=== PATIENT | female | born 1965 | race Caucasian/White ===

== ENCOUNTER 2017-03-18 15:19 | Inpatient (IN) | payer OTHER ==
[~2017-03-18] VITALS: Ht 157.5 cm; Wt 62.4 kg
[~2017-03-18 15:19] MED LIST: AMBIEN10 M1 PO; AMBIEN5 MG PO; AMLODIPINE BESY10 MG PO; ANAPROX DS550 M1 PO; APRESOLINE50 MG PO; ASPIR 8181 M1 PO; ASPIR-TRIN325 M1; ATARAX,VISTARIL50 MG PO; BUSPAR5 MG PO; BUSPAR7.5 MG PO; BUSPIRONE HCL7.5 MG PO; CALCITRIOL0.25 MCG PO; COZAAR100 MG PO; CYMBALTA30 MG PO; DIOVAN320 MG; DIVALPROEX SOD500 M1; ELAVIL25 MG PO; ERGOCALCIF50000 UNIT PO; FLEXERIL10 MG PO; GABAPENTIN100 MG PO; GLIPIZIDE ER2.5 MG; HYDROXYZINE HCL50 MG PO; HYZAAR 100-11 TABLET PO; IMDUR30 MG PO; IMITREX100 MG PO; LANTUS 3 M100 UNITS1 SC; LEVOTHYROXINE100 MCG; LEXAPRO10 MG PO; LIPITOR20 MG PO; LOPRESSOR100 M1 PO; LORTAB 5-325 M1 EACH PO; LOSARTAN POTASS50 MG PO; LYRICA100 MG PO; LYRICA50 MG; METOPROLOL TART50 MG PO; MONTELUKAST SOD10 MG PO; NITROSTAT0.4 MG SL; NORVASC10 MG PO; NOVOLOG 10100 UNITS/ SC; NOVOLOG PE100 UNITS/ SC; OMEGA-31000 M1; OMEPRAZOLE20 M3; OMEPRAZOLE20 MG PO; OMEPRAZOLE40 M1 PO; OXAYDO5 MG PO; OXYCODONE HCL10 MG PO; OXYCODONE HCL15 MG PO; PLAVIX75 MG PO; PRILOSEC20 MG PO; ROCALTROL0.25 MCG PO; ROXICODONE15 MG PO; SIMVASTATIN40 M1 PO; SINGULAIR10 MG PO; TOPROL XL50 MG; TRAZODONE HCL50 MG PO; TRICOR145 MG PO; TRILIPIX135 MG; TRILIPIX135 MG PO; TUMS500 MG PO; TYLENOL EXTRA500 MG PO; TYLENOL WITH C1 EACH PO; ULTRAM50 MG PO; VALTREX1000 MG PO; VICODIN,LORT1 TABLET PO; ZESTRIL,PRINIVI10 MG; ZOFRAN ODT8 MG PO; ZOLPIDEM TARTRAT5 MG PO
[2017-03-18 16:27] LABS: ADD MIUA? YES; BILIRUBIN NEGATIVE; BLOOD NEGATIVE; COLOR YELLOW ((YELLOW)); GLUCOSE (STRIP) NEGATIVE; KETONES NEGATIVE; LEUKOCYTES LARGE; NITRITE NEGATIVE; PROTEIN (STRIP) >=500; UROBILINOGEN 0.2 MG/DL (0.2-1.0)
[2017-03-18 16:32] LABS: BASOPHIL COUNT 0.1 K/uL (0-0.1); EOSINOPHIL (%) 2.9 % (0-5); EOSINOPHIL COUNT 0.2 K/uL (0-0.3); HEMATOCRIT 29.9 % (36.0-46.0); IMMATURE GRANULOCYTE (%) 0.3 % (0.0-0.7); INSTRUMENT ABS NEUTROPHIL CT 4.1 K/uL; LYMPHOCYTE COUNT 1.9 K/uL (1.0-2.8); MCH 30.2 PG (29.0-34.0); MCHC 33.4 G/DL (30.0-36.0); MCV 90.3 FL (83-99); MEAN PLAT.VOLUME 9.8 uM^3 (9.5-12.4); MONOCYTE (%) 7.5 % (3-12); MONOCYTE COUNT 0.5 K/uL (0-0.8); NEUTROPHIL (%) 59.8 % (45-76); NEUTROPHIL COUNT 4.1 K/uL (1.8-6.4); PLATELET COUNT 244 K/uL (156-360); RBC DIS.WIDTH-CV 13.2 % (11.8-14.6); RBC DIS.WIDTH-SD 43.3 % (39-53); RED BLOOD COUNT 3.31 M/uL (3.80-5.20); WHITE BLOOD COUNT 6.8 K/uL (4.1-10.2)
[2017-03-18 16:42] LABS: PROTHROMBIN TIME 9.8 (9.2-11.2); PTT 26.1 (25-32)
[2017-03-18 16:43] LABS: BACTERIA RARE /HPF; EPITHELIAL CELLS 1+ /HPF; MUCUS NONE SEEN /LPF; RED BLOOD CELLS 0-5 /HPF (0-5); UCUL ADDED? NO
[2017-03-18 16:43] LABS: CHLORIDE 105 mEq/L (99-109); POTASSIUM 4.2 mEq/L (3.7-5.4); SODIUM 136 mEq/L (136-147)
[2017-03-18 16:46] LABS: GLUCOSE 119 mg/dL (70-99)
[2017-03-18 16:47] LABS: ANION GAP 10 MEQ/L (2-14)
[2017-03-18 16:48] LABS: TOTAL BILIRUBIN 0.4 mg/dL (0.0-1.0)
[2017-03-18 16:49] LABS: ALKALINE PHOSPHATASE 55 IU/L (3-129); GFR ESTIMATE (CALCULATED) 7 mL/min/
[2017-03-18 16:50] LABS: UREA NITROGEN (BUN) 53 mg/dL (9-23)
[2017-03-18 16:53] LABS: LIPASE 28 U/L (1.0-51.0)
[2017-03-18 16:55] LABS: TROP-I INTERPRETATION NEGATIVE; TROPONIN-I 0.04 ng/mL (0.0-0.30)
[2017-03-18] MEDS ORDERED: LANTUS 3 M100 UNITS1 SC (20:27)
[2017-03-18] MEDS ORDERED: NOVOLOG PE100 UNITS/ SC (20:28)
[2017-03-18] MEDS ORDERED: HYZAAR 100-21 TABLET PO (20:29)
[2017-03-18] MEDS ORDERED: NITROSTAT0.4 MG SL (20:30)
[2017-03-18] MEDS ORDERED: LIDOCAINE700 MG TD (20:39)
[2017-03-18] MEDS ORDERED: NORVASC10 MG PO (20:41)
[2017-03-18 20:59] LABS: CARBON DIOXIDE (BICARBONATE) 25.8 MEQ/L (20-31)
[2017-03-18 21:09] LABS: URIC ACID 10.8 mg/dL (3.1-9.2)
[2017-03-18 21:34] VITALS: BP 130/62
[2017-03-19] VITALS (8 sets, daily range): BP systolic 101–155; BP diastolic 55–68
[2017-03-19 01:30] LABS: TROP-I INTERPRETATION NEGATIVE; TROPONIN-I 0.03 ng/mL (0.0-0.30)
[2017-03-19 06:31] LABS: HEMATOCRIT 23.7 % (36.0-46.0); MCH 30.6 PG (29.0-34.0); MCHC 33.3 G/DL (30.0-36.0); MCV 91.9 FL (83-99); RBC DIS.WIDTH-CV 13.3 % (11.8-14.6); RBC DIS.WIDTH-SD 43.8 % (39-53); WHITE BLOOD COUNT 4.9 K/uL (4.1-10.2)
[2017-03-19 06:36] LABS: TROP-I INTERPRETATION NEGATIVE; TROPONIN-I 0.03 ng/mL (0.0-0.30)
[2017-03-19 06:37] LABS: RED BLOOD COUNT 2.58 M/uL (3.80-5.20)
[2017-03-19 06:38] LABS: ALKALINE PHOSPHATASE 41 IU/L (3-129); ANION GAP 8 MEQ/L (2-14); CHLORIDE 109 MEQ/L (99-109); GFR ESTIMATE (CALCULATED) 7 mL/min/; MAGNESIUM 1.8 mg/dl (1.3-2.7); POTASSIUM 4.2 MEQ/L (3.7-5.4); SAMPLE HEMOLYSIS CHECK 0; SAMPLE ICTERIC CHECK 0; SAMPLE LIPEMIA CHECK 0; SODIUM 139 MEQ/L (136-147); TOTAL BILIRUBIN 0.3 MG/DL (0.0-1.0); UREA NITROGEN (BUN) 52 mg/dL (9-23)
[2017-03-19 06:41] LABS: GLUCOSE 89 mg/dL (70-99)
[2017-03-19 08:14] LABS: MEAN PLAT.VOLUME 10.4 uM^3 (9.5-12.4); PLAT.SUFFICIENCY ADEQUATE
[2017-03-19 08:26] LABS: PLATELET COUNT 166 K/uL (156-360)
[2017-03-19 09:48] LABS: ERTH.SED.RATE 6 MM/HR (0-30)
[2017-03-20] VITALS (7 sets, daily range): BP systolic 105–137; BP diastolic 56–67
[2017-03-20 06:36] LABS: HEMATOCRIT 24.3 % (36.0-46.0); MCH 30.7 PG (29.0-34.0); MCHC 33.3 G/DL (30.0-36.0); MEAN PLAT.VOLUME 10.2 uM^3 (9.5-12.4); PLATELET COUNT 195 K/uL (156-360); RBC DIS.WIDTH-CV 13.3 % (11.8-14.6); RBC DIS.WIDTH-SD 43.8 % (39-53); RED BLOOD COUNT 2.64 M/uL (3.80-5.20); WHITE BLOOD COUNT 4.9 K/uL (4.1-10.2)
[2017-03-20 07:13] LABS: ANION GAP 9 MEQ/L (2-14); CHLORIDE 107 MEQ/L (99-109); GFR ESTIMATE (CALCULATED) 8 mL/min/; GLUCOSE 91 mg/dL (70-99); MAGNESIUM 1.7 mg/dl (1.3-2.7); POTASSIUM 4.3 MEQ/L (3.7-5.4); SAMPLE HEMOLYSIS CHECK 0; SAMPLE ICTERIC CHECK 0; SAMPLE LIPEMIA CHECK 0; SODIUM 136 MEQ/L (136-147); UREA NITROGEN (BUN) 52 mg/dL (9-23)
[2017-03-20 11:32] LABS: POINT-OF-CARE METER ID UU13113717
[2017-03-21 05:00] VITALS: BP 178/74
[2017-03-21 06:37] LABS: BASOPHIL COUNT 0.1 K/uL (0-0.1); EOSINOPHIL (%) 5.3 % (0-5); EOSINOPHIL COUNT 0.3 K/uL (0-0.3); HEMATOCRIT 27.1 % (36.0-46.0); IMMATURE GRANULOCYTE (%) 0.2 % (0.0-0.7); INSTRUMENT ABS NEUTROPHIL CT 2.3 K/uL; LYMPHOCYTE COUNT 1.7 K/uL (1.0-2.8); MCH 30.4 PG (29.0-34.0); MCHC 33.6 G/DL (30.0-36.0); MCV 90.6 FL (83-99); MEAN PLAT.VOLUME 10.2 uM^3 (9.5-12.4); MONOCYTE (%) 8.1 % (3-12); MONOCYTE COUNT 0.4 K/uL (0-0.8); NEUTROPHIL (%) 49.6 % (45-76); NEUTROPHIL COUNT 2.3 K/uL (1.8-6.4); PLATELET COUNT 219 K/uL (156-360); RBC DIS.WIDTH-CV 13.2 % (11.8-14.6); RBC DIS.WIDTH-SD 43.7 % (39-53); RED BLOOD COUNT 2.99 M/uL (3.80-5.20); WHITE BLOOD COUNT 4.7 K/uL (4.1-10.2)
[2017-03-21 07:03] LABS: ANION GAP 7 MEQ/L (2-14); CHLORIDE 105 MEQ/L (99-109); GFR ESTIMATE (CALCULATED) 8 mL/min/; GLUCOSE 96 mg/dL (70-99); POTASSIUM 4.2 MEQ/L (3.7-5.4); SAMPLE HEMOLYSIS CHECK 0; SAMPLE ICTERIC CHECK 0; SAMPLE LIPEMIA CHECK 0; SODIUM 136 MEQ/L (136-147); UREA NITROGEN (BUN) 49 mg/dL (9-23)
[2017-03-21 07:43] VITALS: BP 152/72
[2017-03-21 13:07] LABS: UR CREATININE CONCENTRATION 162.9 MG/DL
[2017-03-21 15:14] VITALS: BP 127/65
[2017-03-21 21:11] LABS: POINT-OF-CARE METER ID UU13113717
[2017-03-21 23:04] VITALS: BP 142/71
[2017-03-22 01:30] VITALS: BP 170/75
[2017-03-22 04:00] VITALS: BP 125/59
[2017-03-22 08:03] LABS: POINT-OF-CARE METER ID UU14174225
[2017-03-22 08:18] VITALS: BP 170/77
[2017-03-22 11:17] LABS: POINT-OF-CARE METER ID UU13113675
[2017-03-22 19:28] VITALS: BP 174/80
[2017-03-22 23:24] VITALS: BP 146/71
[2017-03-23 05:08] VITALS: BP 132/76
[2017-03-23 06:25] LABS: ANION GAP 9 MEQ/L (2-14); CHLORIDE 103 MEQ/L (99-109); GFR ESTIMATE (CALCULATED) 10 mL/min/; GLUCOSE 81 mg/dL (70-99); POTASSIUM 4.6 MEQ/L (3.7-5.4); SAMPLE HEMOLYSIS CHECK 0; SAMPLE ICTERIC CHECK 0; SAMPLE LIPEMIA CHECK 0; SODIUM 132 MEQ/L (136-147); UREA NITROGEN (BUN) 41 mg/dL (9-23)
[2017-03-23 08:33] LABS: POINT-OF-CARE METER ID UU13113698; POINT-OF-CARE USER ID NUTSLF44
[2017-03-23 08:36] VITALS: BP 170/73
[2017-03-23 11:00] VITALS: BP 148/80
[2017-03-23 11:52] LABS: POINT-OF-CARE METER ID UU13113698; POINT-OF-CARE USER ID NUTSLF44
[2017-03-23 12:38] LABS: HBSG INDEX 0.24; HPCA INDEX 0.06
[2017-03-23 12:39] LABS: AHBS INDEX 0.09; HEPATITIS B SURFACE ANTIBODY Nonreactive
[2017-03-23 12:40] LABS: ANTI-HEPATITIS A VIRUS (IGM) Nonreactive; HAV INDEX 0.16
[2017-03-23 12:41] LABS: ANTI-HEPATITIS B CORE (IGM) Nonreactive; HBC IgM INDEX 0.06
[2017-03-23 15:00] VITALS: BP 138/78
[2017-03-23 17:17] LABS: ADD MIUA? YES; BILIRUBIN NEGATIVE; BLOOD NEGATIVE; COLOR YELLOW ((YELLOW)); GLUCOSE (STRIP) NEGATIVE; KETONES NEGATIVE; LEUKOCYTES NEGATIVE; NITRITE NEGATIVE; PROTEIN (STRIP) 100; SPECIFIC GRAVITY 1.004 (1.000-1.030); UROBILINOGEN 0.2 MG/DL (0.2-1.0)
[2017-03-23 17:29] LABS: POINT-OF-CARE METER ID UU13113698; POINT-OF-CARE USER ID NUTSLF44
[2017-03-23 17:36] LABS: BACTERIA 1+ /HPF; CASTS NONE SEEN /LPF; CRYSTALS PRESENT; EPITHELIAL CELLS RARE /HPF; MUCUS NONE SEEN /LPF; RED BLOOD CELLS RARE /HPF (0-5); UCUL ADDED? NO
[2017-03-23 17:37] LABS: AMORPHOUS URATES CRYSTALS 1+
[2017-03-23 20:02] VITALS: BP 177/83
[2017-03-23 22:03] LABS: POINT-OF-CARE METER ID UU13113698
[2017-03-23 23:34] VITALS: BP 159/77
[2017-03-24 03:40] VITALS: BP 175/81
[2017-03-24 07:44] VITALS: BP 158/79
[2017-03-24 08:30] LABS: POINT-OF-CARE USER ID ENVKC36
[2017-03-24 09:39] LABS: HEMATOCRIT 26.9 % (36.0-46.0); MCH 31.2 PG (29.0-34.0); MCHC 34.9 G/DL (30.0-36.0); MCV 89.4 FL (83-99); MEAN PLAT.VOLUME 9.7 uM^3 (9.5-12.4); PLATELET COUNT 231 K/uL (156-360); RBC DIS.WIDTH-CV 13.7 % (11.8-14.6); RBC DIS.WIDTH-SD 44.8 % (39-53); RED BLOOD COUNT 3.01 M/uL (3.80-5.20); WHITE BLOOD COUNT 5.5 K/uL (4.1-10.2)
[2017-03-24 10:06] LABS: ANION GAP 11 MEQ/L (2-14); CHLORIDE 103 MEQ/L (99-109); GFR ESTIMATE (CALCULATED) 12 mL/min/; GLUCOSE 109 mg/dL (70-99); POTASSIUM 4.3 MEQ/L (3.7-5.4); SAMPLE HEMOLYSIS CHECK 0; SAMPLE ICTERIC CHECK 0; SAMPLE LIPEMIA CHECK 0; SODIUM 133 MEQ/L (136-147); UREA NITROGEN (BUN) 38 mg/dL (9-23)
[2017-03-24 12:03] LABS: POINT-OF-CARE METER ID UU14174216; POINT-OF-CARE USER ID ENVKC36
[2017-03-24 16:46] LABS: POINT-OF-CARE USER ID ENVKC36
[2017-03-24 17:02] VITALS: BP 154/72
[2017-03-24 20:59] LABS: POINT-OF-CARE USER ID ENVMNS
[2017-03-24 21:00] VITALS: BP 150/71
[2017-03-25 00:30] VITALS: BP 130/63
[2017-03-25 03:52] VITALS: BP 147/80
[2017-03-25 07:40] VITALS: BP 170/83
[2017-03-25 08:21] LABS: POINT-OF-CARE USER ID ENVKC36
== END 2017-03-25 11:14 | disposition home or self-care (01) | DRG 981 ==
LOC: EME → EDBD 15:19 → EME 15:19 → 5SOUTH 20:09 → EDOF 20:09 → 5SOUTH 21:20 → 4EAST 03-22 12:13
PROVIDERS: Emergency Medicine; Internal Medicine; Internal Medicine Nephrology; Physician Assistant Medical
PROC: 0WHG03Z Insertion of Infusion Device into Peritoneal Cavity, Open Approach (ICD-10-PCS; principal; 2017-03-22)
DX: I13.2 Hypertensive heart and chronic kidney disease with heart failure and with stage 5 chronic kidney disease, or end stage renal disease (principal); G93.41 Metabolic encephalopathy; N17.9 Acute kidney failure, unspecified; K86.89 Other specified diseases of pancreas; E11.40 Type 2 diabetes mellitus with diabetic neuropathy, unspecified; I50.9 Heart failure, unspecified; N18.5 Chronic kidney disease, stage 5; R15.9 Full incontinence of feces; E87.8 Other disorders of electrolyte and fluid balance, not elsewhere classified; E11.319 Type 2 diabetes mellitus with unspecified diabetic retinopathy without macular edema; E11.22 Type 2 diabetes mellitus with diabetic chronic kidney disease; E87.1 Hypo-osmolality and hyponatremia; E11.65 Type 2 diabetes mellitus with hyperglycemia; F11.20 Opioid dependence, uncomplicated; E87.2 Acidosis; D63.1 Anemia in chronic kidney disease; N39.0 Urinary tract infection, site not specified; R00.0 Tachycardia, unspecified; I12.9 Hypertensive chronic kidney disease with stage 1 through stage 4 chronic kidney disease, or unspecified chronic kidney disease; R33.8 Other retention of urine; I25.5 Ischemic cardiomyopathy; K21.9 Gastro-esophageal reflux disease without esophagitis; I25.10 Atherosclerotic heart disease of native coronary artery without angina pectoris; R16.0 Hepatomegaly, not elsewhere classified; F17.200 Nicotine dependence, unspecified, uncomplicated; G89.4 Chronic pain syndrome; M54.9 Dorsalgia, unspecified; E78.5 Hyperlipidemia, unspecified; F32.9 Major depressive disorder, single episode, unspecified; Y90.8 Blood alcohol level of 240 mg/100 ml or more; F10.20 Alcohol dependence, uncomplicated; J44.9 Chronic obstructive pulmonary disease, unspecified; F10.239 Alcohol dependence with withdrawal, unspecified; R29.6 Repeated falls; M51.26 Other intervertebral disc displacement, lumbar region; M51.27 Other intervertebral disc displacement, lumbosacral region; F02.80 Dementia in other diseases classified elsewhere, unspecified severity, without behavioral disturbance, psychotic disturbance, mood disturbance, and anxiety; E11.21 Type 2 diabetes mellitus with diabetic nephropathy; R63.4 Abnormal weight loss; F10.229 Alcohol dependence with intoxication, unspecified; W18.30XA Fall on same level, unspecified, initial encounter; M46.90 Unspecified inflammatory spondylopathy, site unspecified; R55 Syncope and collapse; G30.9 Alzheimer's disease, unspecified; I25.2 Old myocardial infarction; Z79.4 Long term (current) use of insulin; Z95.1 Presence of aortocoronary bypass graft; Z88.8 Allergy status to other drugs, medicaments and biological substances; Z91.81 History of falling; Y93.K1 Activity, walking an animal; Y92.9 Unspecified place or not applicable; Y99.9 Unspecified external cause status; Z79.82 Long term (current) use of aspirin; Z79.02 Long term (current) use of antithrombotics/antiplatelets; Z68.24 Body mass index [BMI] 24.0-24.9, adult
CPT/HCPCS: 70450; 71010; 72131; 74176; 76705; 76770; 80048; 80053; 80074; 81003; 81050; 82140; 82436; 82550 91; 82575; 82803; 82948; 83605; 83690; 83735; 83935; 84133; 84300; 84484; 84550; 85025; 85027; 85610; 85651; 85730; 86706; 87040; 93005; 99281; 99284; C1750; J0690; J0696; J1170; J1644; J1815; J2270; J2405; J2710; J2765; J3010; J7030; J7050

== ENCOUNTER 2017-04-19 18:41 | Inpatient (IN) | payer OTHER ==
[~2017-04-19] VITALS: Ht 157.5 cm; Wt 58.8 kg
[~2017-04-19 18:41] MED LIST changes: +HYZAAR 100-21 TABLET PO; +LIDOCAINE700 MG TD
[2017-04-19 19:37] LABS: HEMATOCRIT 33.7 % (36.0-46.0); MCH 30.5 PG (29.0-34.0); MCHC 34.1 G/DL (30.0-36.0); MCV 89.4 FL (83-99); MEAN PLAT.VOLUME 10.1 uM^3 (9.5-12.4); NRBC (%) 0.2 /100 WBC (0-0); PLATELET COUNT 237 K/uL (156-360); RBC DIS.WIDTH-CV 12.8 % (11.8-14.6); RBC DIS.WIDTH-SD 42.2 % (39-53); RED BLOOD COUNT 3.77 M/uL (3.80-5.20); WHITE BLOOD COUNT 8.7 K/uL (4.1-10.2)
[2017-04-19 19:45] LABS: PROTHROMBIN TIME 9.9 (9.2-11.2); PTT 20.6 (25-32)
[2017-04-19 19:46] LABS: CHLORIDE 98 mEq/L (99-109); POTASSIUM 3.8 mEq/L (3.7-5.4); SODIUM 136 mEq/L (136-147)
[2017-04-19 19:48] LABS: GLUCOSE 217 mg/dL (70-99)
[2017-04-19 19:49] LABS: ANION GAP 11 MEQ/L (2-14)
[2017-04-19 19:52] LABS: GFR ESTIMATE (CALCULATED) 6 mL/min/
[2017-04-19 19:53] LABS: UREA NITROGEN (BUN) 39 mg/dL (9-23)
[2017-04-19 20:02] LABS: TROP-I INTERPRETATION NEGATIVE; TROPONIN-I 0.09 ng/mL (0.0-0.30)
[2017-04-19] MEDS ORDERED: RENAPLEX D PO (20:39)
[2017-04-19] MEDS ORDERED: LOSARTAN-HCTZ1 EAC1 PO (20:39)
[2017-04-19] MEDS ORDERED: LYRICA25 MG PO (20:40)
[2017-04-19] MEDS ORDERED: AMBIEN5 MG PO (20:40)
[2017-04-19] MEDS ORDERED: ZOFRAN4 MG PO (20:40)
[2017-04-19] MEDS ORDERED: BUSPAR5 MG PO (20:40)
[2017-04-20 01:00] VITALS: BP 98/53
[2017-04-20 07:35] LABS: BASOPHIL COUNT 0.1 K/uL (0-0.1); EOSINOPHIL (%) 1.3 % (0-5); EOSINOPHIL COUNT 0.1 K/uL (0-0.3); HEMATOCRIT 31.3 % (36.0-46.0); IMMATURE GRANULOCYTE (%) 0.3 % (0.0-0.7); INSTRUMENT ABS NEUTROPHIL CT 3.9 K/uL; LYMPHOCYTE COUNT 2.3 K/uL (1.0-2.8); MCH 30.4 PG (29.0-34.0); MCHC 33.5 G/DL (30.0-36.0); MCV 90.7 FL (83-99); MEAN PLAT.VOLUME 10.1 uM^3 (9.5-12.4); MONOCYTE COUNT 0.6 K/uL (0-0.8); NEUTROPHIL (%) 56.6 % (45-76); NEUTROPHIL COUNT 3.9 K/uL (1.8-6.4); PLATELET COUNT 190 K/uL (156-360); RBC DIS.WIDTH-SD 43.2 % (39-53); RED BLOOD COUNT 3.45 M/uL (3.80-5.20); WHITE BLOOD COUNT 6.9 K/uL (4.1-10.2)
[2017-04-20 07:45] VITALS: BP 86/52
[2017-04-20 07:58] LABS: ALKALINE PHOSPHATASE 50 IU/L (3-129); ANION GAP 12 MEQ/L (2-14); CHLORIDE 100 MEQ/L (99-109); DIRECT BILIRUBIN 0.1 mg/dL (0.0-0.3); GFR ESTIMATE (CALCULATED) 6 mL/min/; GLUCOSE 121 mg/dL (70-99); POTASSIUM 3.2 MEQ/L (3.7-5.4); SAMPLE HEMOLYSIS CHECK 0; SAMPLE ICTERIC CHECK 0; SAMPLE LIPEMIA CHECK 0; SODIUM 136 MEQ/L (136-147); TOTAL BILIRUBIN 0.4 MG/DL (0.0-1.0); TROP-I INTERPRETATION NEGATIVE; TROPONIN-I 0.09 ng/mL (0.0-0.30); UREA NITROGEN (BUN) 37 mg/dL (9-23)
[2017-04-20 13:15] LABS: TROP-I INTERPRETATION NEGATIVE; TROPONIN-I 0.09 ng/mL (0.0-0.30)
[2017-04-20 15:30] VITALS: BP 117/71
[2017-04-20 21:07] LABS: POINT-OF-CARE METER ID UU13113725
[2017-04-21 00:58] VITALS: BP 99/59
[2017-04-21 06:12] LABS: EOSINOPHIL (%) 1.9 % (0-5); EOSINOPHIL COUNT 0.1 K/uL (0-0.3); HEMATOCRIT 27.8 % (36.0-46.0); IMMATURE GRANULOCYTE (%) 0.4 % (0.0-0.7); INSTRUMENT ABS NEUTROPHIL CT 2.8 K/uL; LYMPHOCYTE COUNT 1.9 K/uL (1.0-2.8); MCH 31.7 PG (29.0-34.0); MCHC 34.5 G/DL (30.0-36.0); MCV 91.7 FL (83-99); MEAN PLAT.VOLUME 10.1 uM^3 (9.5-12.4); MONOCYTE (%) 8.8 % (3-12); MONOCYTE COUNT 0.5 K/uL (0-0.8); NEUTROPHIL (%) 52.6 % (45-76); NEUTROPHIL COUNT 2.8 K/uL (1.8-6.4); PLATELET COUNT 174 K/uL (156-360); RBC DIS.WIDTH-CV 12.9 % (11.8-14.6); RBC DIS.WIDTH-SD 42.5 % (39-53); RED BLOOD COUNT 3.03 M/uL (3.80-5.20); WHITE BLOOD COUNT 5.3 K/uL (4.1-10.2)
[2017-04-21 06:36] LABS: ANION GAP 9 MEQ/L (2-14); CHLORIDE 104 MEQ/L (99-109); GFR ESTIMATE (CALCULATED) 7 mL/min/; GLUCOSE 122 mg/dL (70-99); POTASSIUM 3.6 MEQ/L (3.7-5.4); SAMPLE HEMOLYSIS CHECK 0; SAMPLE ICTERIC CHECK 0; SAMPLE LIPEMIA CHECK 0; SODIUM 135 MEQ/L (136-147); UREA NITROGEN (BUN) 36 mg/dL (9-23)
[2017-04-21 07:36] VITALS: BP 106/59
== END 2017-04-21 13:30 | disposition home health service (06) | DRG 312 ==
LOC: EME 18:41 → 5EAST 21:33 → EDOF 21:33 → 5EAST 04-20 00:37
PROVIDERS: Emergency Medicine; Hospitalist; Internal Medicine Nephrology
PROC: 3E1M39Z Irrigation of Peritoneal Cavity using Dialysate, Percutaneous Approach (ICD-10-PCS; principal; 2017-04-20)
DX: I95.1 Orthostatic hypotension (principal); E86.1 Hypovolemia; E86.0 Dehydration; T46.5X5A Adverse effect of other antihypertensive drugs, initial encounter; Y84.1 Kidney dialysis as the cause of abnormal reaction of the patient, or of later complication, without mention of misadventure at the time of the procedure; E87.6 Hypokalemia; E11.22 Type 2 diabetes mellitus with diabetic chronic kidney disease; I13.2 Hypertensive heart and chronic kidney disease with heart failure and with stage 5 chronic kidney disease, or end stage renal disease; I50.22 Chronic systolic (congestive) heart failure; N18.6 End stage renal disease; E78.00 Pure hypercholesterolemia, unspecified; D63.1 Anemia in chronic kidney disease; E78.5 Hyperlipidemia, unspecified; K21.9 Gastro-esophageal reflux disease without esophagitis; I25.10 Atherosclerotic heart disease of native coronary artery without angina pectoris; G43.909 Migraine, unspecified, not intractable, without status migrainosus; F31.9 Bipolar disorder, unspecified; Z79.02 Long term (current) use of antithrombotics/antiplatelets; Z79.4 Long term (current) use of insulin; Z87.891 Personal history of nicotine dependence; Z99.2 Dependence on renal dialysis; I25.2 Old myocardial infarction; Z95.1 Presence of aortocoronary bypass graft; Z79.82 Long term (current) use of aspirin
CPT/HCPCS: 71020; 80048; 80076; 82948; 83880; 84484; 85025; 85027; 85610; 85730; 89051; 93005; 99281; 99285; J1644; J1815; J7030; J7040

== ENCOUNTER 2017-05-05 20:42 | Inpatient (IN) | payer OTHER ==
[~2017-05-05] VITALS: Ht 157.5 cm; Wt 58.1 kg
[~2017-05-05 20:42] MED LIST changes: +LOSARTAN-HCTZ1 EAC1 PO; +LYRICA50 MG PO; +RENAPLEX D PO; +ZOFRAN4 MG PO
[2017-05-05 22:52] LABS: HEMATOCRIT 31.1 % (36.0-46.0); MCH 29.7 PG (29.0-34.0); MCHC 33.8 G/DL (30.0-36.0); MCV 88.1 FL (83-99); MEAN PLAT.VOLUME 9.4 uM^3 (9.5-12.4); PLATELET COUNT 275 K/uL (156-360); RBC DIS.WIDTH-CV 12.3 % (11.8-14.6); RBC DIS.WIDTH-SD 39.3 % (39-53); RED BLOOD COUNT 3.53 M/uL (3.80-5.20); WHITE BLOOD COUNT 12.2 K/uL (4.1-10.2)
[2017-05-05 23:04] LABS: CHLORIDE 91 mEq/L (99-109); POTASSIUM 2.9 mEq/L (3.7-5.4); SODIUM 131 mEq/L (136-147)
[2017-05-05 23:06] LABS: GLUCOSE 130 mg/dL (70-99)
[2017-05-05 23:07] LABS: ANION GAP 11 MEQ/L (2-14)
[2017-05-05 23:08] LABS: TOTAL BILIRUBIN 0.5 mg/dL (0.0-1.0)
[2017-05-05 23:09] LABS: ALKALINE PHOSPHATASE 78 IU/L (3-129)
[2017-05-05 23:10] LABS: GFR ESTIMATE (CALCULATED) 16 mL/min/
[2017-05-05 23:11] LABS: UREA NITROGEN (BUN) 28 mg/dL (9-23)
[2017-05-05] MEDS ORDERED: BASAGLAR K100 UNIT/1 SC (23:49)
[2017-05-06] MEDS ORDERED: APRESOLINE50 MG PO
[2017-05-06] MEDS ORDERED: LYRICA25 MG PO (00:01)
[2017-05-06 02:54] VITALS: BP 159/85
[2017-05-06 07:45] LABS: POINT-OF-CARE METER ID UU13113725
[2017-05-06 07:50] VITALS: BP 139/74
[2017-05-06 11:05] LABS: POINT-OF-CARE METER ID UU13113725
[2017-05-06 11:42] VITALS: BP 120/69
[2017-05-06 16:44] VITALS: BP 136/72
[2017-05-06 17:20] LABS: POINT-OF-CARE METER ID UU13113725
[2017-05-06 19:07] VITALS: BP 129/67
[2017-05-06 22:48] VITALS: BP 144/81
[2017-05-07 03:45] VITALS: BP 136/74
[2017-05-07 06:19] LABS: MCH 30.9 PG (29.0-34.0); MCV 88.2 FL (83-99); MEAN PLAT.VOLUME 9.6 uM^3 (9.5-12.4); PLATELET COUNT 201 K/uL (156-360); RBC DIS.WIDTH-CV 12.1 % (11.8-14.6); WHITE BLOOD COUNT 8.1 K/uL (4.1-10.2)
[2017-05-07 06:20] LABS: RED BLOOD COUNT 2.72 M/uL (3.80-5.20)
[2017-05-07 06:55] LABS: ANION GAP 5 MEQ/L (2-14); CHLORIDE 92 MEQ/L (99-109); GFR ESTIMATE (CALCULATED) 17 mL/min/; GLUCOSE 115 mg/dL (70-99); MAGNESIUM 1.3 mg/dl (1.3-2.7); POTASSIUM 3.3 MEQ/L (3.7-5.4); SAMPLE HEMOLYSIS CHECK 0; SAMPLE ICTERIC CHECK 0; SAMPLE LIPEMIA CHECK 0; SODIUM 127 MEQ/L (136-147); UREA NITROGEN (BUN) 29 mg/dL (9-23); VANCOMYCIN, TROUGH 18.5 MCG/ML (10-20)
[2017-05-07 08:18] VITALS: BP 122/69
[2017-05-07 11:45] VITALS: BP 122/68
[2017-05-07 11:47] LABS: POINT-OF-CARE METER ID UU13113725
[2017-05-07 16:07] LABS: POINT-OF-CARE METER ID UU13113725
[2017-05-07 16:11] VITALS: BP 115/65
[2017-05-07 19:28] VITALS: BP 142/79
[2017-05-07 22:03] LABS: POINT-OF-CARE METER ID UU13113725
[2017-05-07 22:52] VITALS: BP 164/87
[2017-05-08 03:12] VITALS: BP 147/79
[2017-05-08 06:14] LABS: BASOPHIL COUNT 0.1 K/uL (0-0.1); EOSINOPHIL (%) 3.7 % (0-5); EOSINOPHIL COUNT 0.3 K/uL (0-0.3); HEMATOCRIT 25.3 % (36.0-46.0); IMMATURE GRANULOCYTE (%) 0.6 % (0.0-0.7); INSTRUMENT ABS NEUTROPHIL CT 4.1 K/uL; LYMPHOCYTE COUNT 1.5 K/uL (1.0-2.8); MCH 29.6 PG (29.0-34.0); MCHC 33.6 G/DL (30.0-36.0); MCV 88.2 FL (83-99); MEAN PLAT.VOLUME 9.5 uM^3 (9.5-12.4); MONOCYTE (%) 10.6 % (3-12); MONOCYTE COUNT 0.7 K/uL (0-0.8); NEUTROPHIL (%) 61.3 % (45-76); NEUTROPHIL COUNT 4.1 K/uL (1.8-6.4); PLATELET COUNT 222 K/uL (156-360); RBC DIS.WIDTH-CV 11.9 % (11.8-14.6); RBC DIS.WIDTH-SD 38.4 % (39-53); RED BLOOD COUNT 2.87 M/uL (3.80-5.20); WHITE BLOOD COUNT 6.7 K/uL (4.1-10.2)
[2017-05-08 06:46] LABS: ANION GAP 3 MEQ/L (2-14); CHLORIDE 94 MEQ/L (99-109); GFR ESTIMATE (CALCULATED) 17 mL/min/; GLUCOSE 100 mg/dL (70-99); MAGNESIUM 1.4 mg/dl (1.3-2.7); SAMPLE HEMOLYSIS CHECK 0; SAMPLE ICTERIC CHECK 0; SAMPLE LIPEMIA CHECK 0; SODIUM 127 MEQ/L (136-147); UREA NITROGEN (BUN) 26 mg/dL (9-23)
[2017-05-08 06:47] LABS: POTASSIUM 4.6 MEQ/L (3.7-5.4)
[2017-05-08 08:17] VITALS: BP 149/80
[2017-05-08 08:50] VITALS: BP 138/75
[2017-05-08 11:04] LABS: PERITONEAL LAVAGE APPEARANCE HAZY; PERITONEAL LAVAGE COLOR PALE YELLOW; PERITONEAL LAVAGE WBC >1000
[2017-05-08 13:04] LABS: HBSG INDEX 0.28
[2017-05-08 13:05] LABS: HPCA INDEX 0.05
[2017-05-08 13:06] LABS: ANTI-HEPATITIS A VIRUS (IGM) Nonreactive; ANTI-HEPATITIS B CORE (IGM) Nonreactive; HAV INDEX 0.17; HBC IgM INDEX 0.06
[2017-05-08 16:07] VITALS: BP 143/74
[2017-05-08 17:14] LABS: POINT-OF-CARE METER ID UU13113725
[2017-05-08 21:05] LABS: POINT-OF-CARE METER ID UU13113725
[2017-05-08 23:35] VITALS: BP 186/81
[2017-05-09 05:50] LABS: BASOPHIL COUNT 0.1 K/uL (0-0.1); EOSINOPHIL (%) 3.3 % (0-5); EOSINOPHIL COUNT 0.2 K/uL (0-0.3); HEMATOCRIT 25.4 % (36.0-46.0); IMMATURE GRANULOCYTE (%) 0.6 % (0.0-0.7); INSTRUMENT ABS NEUTROPHIL CT 4.5 K/uL; LYMPHOCYTE COUNT 1.6 K/uL (1.0-2.8); MCH 30.4 PG (29.0-34.0); MCHC 34.6 G/DL (30.0-36.0); MCV 87.9 FL (83-99); MEAN PLAT.VOLUME 9.6 uM^3 (9.5-12.4); MONOCYTE (%) 10.1 % (3-12); MONOCYTE COUNT 0.7 K/uL (0-0.8); NEUTROPHIL (%) 62.6 % (45-76); NEUTROPHIL COUNT 4.5 K/uL (1.8-6.4); PLATELET COUNT 239 K/uL (156-360); RBC DIS.WIDTH-CV 11.9 % (11.8-14.6); RBC DIS.WIDTH-SD 38.5 % (39-53); RED BLOOD COUNT 2.89 M/uL (3.80-5.20); WHITE BLOOD COUNT 7.2 K/uL (4.1-10.2)
[2017-05-09 06:15] LABS: ANION GAP 3 MEQ/L (2-14); CHLORIDE 94 MEQ/L (99-109); GFR ESTIMATE (CALCULATED) 16 mL/min/; GLUCOSE 116 mg/dL (70-99); POTASSIUM 5.1 MEQ/L (3.7-5.4); SAMPLE HEMOLYSIS CHECK 0; SAMPLE ICTERIC CHECK 0; SAMPLE LIPEMIA CHECK 0; SODIUM 127 MEQ/L (136-147); UREA NITROGEN (BUN) 22 mg/dL (9-23)
[2017-05-09 06:17] LABS: POINT-OF-CARE METER ID UU13113725
[2017-05-09 07:48] VITALS: BP 178/89
[2017-05-09 09:38] LABS: TYPE OF FLUID PD FLUID
[2017-05-09 09:39] LABS: BODY FLUID RBC'S 11 /MM^3 (0-100); BODY FLUID WBC'S 2240 /MM^3 (0-500); RED CELL AREA COUNTED 18; RED CELL DILUTION 1; WBC AREA COUNTED 2; WBC DILUTION 1; WHITE CELL RAW COUNT 448
[2017-05-09 10:03] LABS: VANCOMYCIN, TROUGH 17.1 MCG/ML (10-20)
[2017-05-09 10:45] LABS: BODY FLUID EOSINOPHILS 0 % (0-25); MONO RAW COUNT 21; MONONUCLEAR WBC'S 21 %; POLY RAW COUNT 79; POLYNUCLEAR WBC'S 79 % (0-25)
[2017-05-09 10:48] LABS: TYPE OF FLUID PERITONEAL
[2017-05-09 11:28] LABS: BODY FLUID RBC'S 3 /MM^3 (0-100); BODY FLUID WBC'S 375 /MM^3 (0-500); RED CELL AREA COUNTED 18; RED CELL DILUTION 1; WBC AREA COUNTED 8; WBC DILUTION 1; WHITE CELL RAW COUNT 300
[2017-05-09 12:03] LABS: BODY FLUID EOSINOPHILS 0 % (0-25); COMMENT FEW MESOTHELIAL CELL; MONO RAW COUNT 31; MONONUCLEAR WBC'S 31 %; POLY RAW COUNT 69; POLYNUCLEAR WBC'S 69 % (0-25)
[2017-05-09 12:07] LABS: POINT-OF-CARE METER ID UU13113725
[2017-05-09 16:18] VITALS: BP 149/78
== END 2017-05-09 18:30 | disposition home or self-care (01) | DRG 867 ==
LOC: EME 20:42 → 5EAST 23:55 → EDOF 23:55 → ENRESERV 23:59 → 5EAST 05-06 02:22 → ENPENDDIS 05-09 → 5EAST 05-09 18:30
PROVIDERS: Emergency Medicine; Hospitalist; Internal Medicine; Internal Medicine Nephrology
PROC: 3E1M39Z Irrigation of Peritoneal Cavity using Dialysate, Percutaneous Approach (ICD-10-PCS; principal; 2017-05-07)
DX: T80.29XA Infection following other infusion, transfusion and therapeutic injection, initial encounter (principal); I13.2 Hypertensive heart and chronic kidney disease with heart failure and with stage 5 chronic kidney disease, or end stage renal disease; N18.6 End stage renal disease; E11.22 Type 2 diabetes mellitus with diabetic chronic kidney disease; I50.22 Chronic systolic (congestive) heart failure; E83.42 Hypomagnesemia; E87.1 Hypo-osmolality and hyponatremia; E87.6 Hypokalemia; Y84.1 Kidney dialysis as the cause of abnormal reaction of the patient, or of later complication, without mention of misadventure at the time of the procedure; D72.829 Elevated white blood cell count, unspecified; R11.0 Nausea; E78.00 Pure hypercholesterolemia, unspecified; K21.9 Gastro-esophageal reflux disease without esophagitis; I25.10 Atherosclerotic heart disease of native coronary artery without angina pectoris; D64.9 Anemia, unspecified; Z86.73 Personal history of transient ischemic attack (TIA), and cerebral infarction without residual deficits; Z79.2 Long term (current) use of antibiotics; Z79.82 Long term (current) use of aspirin; Z87.891 Personal history of nicotine dependence; Z79.4 Long term (current) use of insulin; Z99.2 Dependence on renal dialysis; Z95.1 Presence of aortocoronary bypass graft; I25.2 Old myocardial infarction
CPT/HCPCS: 80048; 80053; 80074; 80170; 80202; 82948; 83605; 83735; 85025; 85027; 87040; 89051; 99281; 99284; J0692; J0881; J1580; J1644; J1815; J2405; J3370; J7050

== ENCOUNTER 2017-05-19 12:13 | Day surgery (SDC) | payer OTHER ==
[~2017-05-19] VITALS: Ht 157.5 cm; Wt 58.1 kg
[~2017-05-19 12:13] MED LIST changes: +BASAGLAR K100 UNIT/1 SC; +LYRICA25 MG PO
[2017-05-19 12:56] VITALS: BP 160/73
[2017-05-19 13:45] LABS: MCV 87.5 FL (83-99)
[2017-05-19 14:09] LABS: ANION GAP 5 MEQ/L (2-14); CHLORIDE 97 MEQ/L (99-109); GFR ESTIMATE (CALCULATED) 18 mL/min/; GLUCOSE 89 mg/dL (70-99); POTASSIUM 3.5 MEQ/L (3.7-5.4); SAMPLE HEMOLYSIS CHECK 0; SAMPLE ICTERIC CHECK 0; SAMPLE LIPEMIA CHECK 0; SODIUM 132 MEQ/L (136-147); UREA NITROGEN (BUN) 17 mg/dL (9-23)
[2017-05-19] MEDS ORDERED: NORCO 5/3251 TABLET PO (17:15)
[2017-05-19 17:18] LABS: POINT-OF-CARE METER ID UU13113675
[2017-05-19 18:05] VITALS: BP 190/84
[2017-05-19 19:05] VITALS: BP 169/73
== END 2017-05-19 19:10 | disposition home or self-care (01) ==
LOC: SDC 12:13
PROVIDERS: Surgery
DX: T85.71XA Infection and inflammatory reaction due to peritoneal dialysis catheter, initial encounter (principal); I12.0 Hypertensive chronic kidney disease with stage 5 chronic kidney disease or end stage renal disease; E11.22 Type 2 diabetes mellitus with diabetic chronic kidney disease; N18.6 End stage renal disease; Z99.2 Dependence on renal dialysis; K21.9 Gastro-esophageal reflux disease without esophagitis; I25.2 Old myocardial infarction; F41.9 Anxiety disorder, unspecified; I25.10 Atherosclerotic heart disease of native coronary artery without angina pectoris; Z95.1 Presence of aortocoronary bypass graft; Z87.891 Personal history of nicotine dependence; Z79.4 Long term (current) use of insulin; Z79.82 Long term (current) use of aspirin; Z79.02 Long term (current) use of antithrombotics/antiplatelets; Z82.49 Family history of ischemic heart disease and other diseases of the circulatory system
CPT/HCPCS: 71010; 80048; 82948; 85014; 85018; C1751; C1788; J0131; J0690; J1644; J2250; J2405; J3010

== ENCOUNTER 2017-06-21 11:12 | Day surgery (SDC) | payer OTHER ==
[~2017-06-21] VITALS: Ht 157.5 cm; Wt 61.2 kg
[~2017-06-21 11:12] MED LIST changes: +LEVAQUIN500 MG PO; +NORCO 5/3251 TABLET PO; +PROBIOTIC1 EAC2 PO
[2017-06-21] MEDS ORDERED: PROBIOTIC-10 370 MG PO (11:55)
[2017-06-21 11:58] LABS: HEMATOCRIT 27.3 % (36.0-46.0); MCH 30.3 PG (29.0-34.0); MCHC 34.8 G/DL (30.0-36.0); MCV 86.9 FL (83-99); MEAN PLAT.VOLUME 11.3 uM^3 (9.5-12.4); PLATELET COUNT 156 K/uL (156-360); RBC DIS.WIDTH-CV 14.1 % (11.8-14.6); RBC DIS.WIDTH-SD 44.7 % (39-53); RED BLOOD COUNT 3.14 M/uL (3.80-5.20); WHITE BLOOD COUNT 7.1 K/uL (4.1-10.2)
[2017-06-21 12:02] VITALS: BP 142/83
[2017-06-21 12:29] LABS: ANION GAP 11 MEQ/L (2-14); CHLORIDE 96 MEQ/L (99-109); GFR ESTIMATE (CALCULATED) 14 mL/min/; GLUCOSE 200 mg/dL (70-99); POTASSIUM 3.5 MEQ/L (3.7-5.4); SAMPLE HEMOLYSIS CHECK 0; SAMPLE ICTERIC CHECK 0; SAMPLE LIPEMIA CHECK 0; SODIUM 135 MEQ/L (136-147); UREA NITROGEN (BUN) 27 mg/dL (9-23)
[2017-06-21 12:44] LABS: POINT-OF-CARE METER ID UU14174212
[2017-06-21 12:56] LABS: METH RESISTANT S AUREUS PCR NEGATIVE (NEGATIVE)
[2017-06-21 13:02] LABS: PROBE CHECK PASS; SPECIMEN PROCESSING CONTROL PASS
[2017-06-21 16:23] LABS: POINT-OF-CARE METER ID UU13113675
[2017-06-21 17:01] VITALS: BP 185/86
[2017-06-21 17:57] VITALS: BP 157/70
== END 2017-06-21 18:03 | disposition home or self-care (01) ==
LOC: SDC 11:12
PROVIDERS: Surgery
DX: I12.0 Hypertensive chronic kidney disease with stage 5 chronic kidney disease or end stage renal disease (principal); E11.22 Type 2 diabetes mellitus with diabetic chronic kidney disease; N18.6 End stage renal disease; Z99.2 Dependence on renal dialysis; Z79.4 Long term (current) use of insulin; E11.42 Type 2 diabetes mellitus with diabetic polyneuropathy; Z79.82 Long term (current) use of aspirin; Z87.891 Personal history of nicotine dependence; I25.2 Old myocardial infarction; Z95.1 Presence of aortocoronary bypass graft
CPT/HCPCS: 80048; 82948; 85027; 87641; C1768; J0690; J1170; J1644; J2405; J3010

== ENCOUNTER 2017-06-26 05:45 | Emergency (ER) | payer OTHER ==
[~2017-06-26] VITALS: Ht 157.5 cm; Wt 59.4 kg
[~2017-06-26 05:45] MED LIST changes: +PROBIOTIC-10 370 MG PO
[2017-06-26 06:45] LABS: EOSINOPHIL COUNT 0.1 K/uL (0-0.3); HEMATOCRIT 23.3 % (36.0-46.0); IMMATURE GRANULOCYTE (%) 0.7 % (0.0-0.7); IMMATURE GRANULOCYTE COUNT 0.1 K/uL; INSTRUMENT ABS NEUTROPHIL CT 12.4 K/uL; LYMPHOCYTE COUNT 1.3 K/uL (1.0-2.8); MCH 29.3 PG (29.0-34.0); MCHC 34.3 G/DL (30.0-36.0); MCV 85.3 FL (83-99); MEAN PLAT.VOLUME 11.4 uM^3 (9.5-12.4); MONOCYTE (%) 3.7 % (3-12); MONOCYTE COUNT 0.5 K/uL (0-0.8); NEUTROPHIL (%) 85.3 % (45-76); NEUTROPHIL COUNT 12.4 K/uL (1.8-6.4); PLATELET COUNT 173 K/uL (156-360); RBC DIS.WIDTH-CV 13.9 % (11.8-14.6); RBC DIS.WIDTH-SD 42.9 % (39-53); RED BLOOD COUNT 2.73 M/uL (3.80-5.20); WHITE BLOOD COUNT 14.5 K/uL (4.1-10.2)
[2017-06-26 06:46] LABS: CARBON DIOXIDE (BICARBONATE) 27.8 MEQ/L (20-31)
[2017-06-26 06:53] LABS: CHLORIDE 99 mEq/L (99-109); POTASSIUM 3.4 mEq/L (3.7-5.4); SODIUM 137 mEq/L (136-147)
[2017-06-26 06:55] LABS: GLUCOSE 209 mg/dL (70-99)
[2017-06-26 06:57] LABS: ANION GAP 16 MEQ/L (2-14); TOTAL BILIRUBIN 0.4 mg/dL (0.0-1.0)
[2017-06-26 06:59] LABS: GFR ESTIMATE (CALCULATED) 11 mL/min/
[2017-06-26 07:15] LABS: ALKALINE PHOSPHATASE 147 IU/L (3-129)
[2017-06-26 07:16] LABS: UREA NITROGEN (BUN) 23 mg/dL (9-23)
[2017-06-26 07:20] LABS: ADD MIUA? YES; BILIRUBIN NEGATIVE; BLOOD SMALL; COLOR YELLOW ((YELLOW)); GLUCOSE (STRIP) >=500; KETONES NEGATIVE; LEUKOCYTES NEGATIVE; NITRITE NEGATIVE; PROTEIN (STRIP) >=500; SPECIFIC GRAVITY 1.009 (1.000-1.030); UROBILINOGEN 0.2 MG/DL (0.2-1.0)
[2017-06-26 07:40] LABS: BACTERIA NONE SEEN /HPF; EPITHELIAL CELLS 1+ /HPF; HYALINE CASTS 0-5 /LPF; MUCUS TRACE /LPF; RED BLOOD CELLS 0-5 /HPF (0-5); UCUL ADDED? NO; WHITE BLOOD CELLS 0-5 /HPF (0-5)
[2017-06-26 11:03] VITALS: BP 136/84
== END 2017-06-26 10:53 | disposition home or self-care (01) ==
LOC: EME 05:45
PROVIDERS: Nurse Practitioner Family
DX: T82.7XXA Infection and inflammatory reaction due to other cardiac and vascular devices, implants and grafts, initial encounter (principal); Y83.2 Surgical operation with anastomosis, bypass or graft as the cause of abnormal reaction of the patient, or of later complication, without mention of misadventure at the time of the procedure; L03.114 Cellulitis of left upper limb; E11.22 Type 2 diabetes mellitus with diabetic chronic kidney disease; N18.9 Chronic kidney disease, unspecified; Z99.2 Dependence on renal dialysis; Z79.4 Long term (current) use of insulin; I25.2 Old myocardial infarction; E78.5 Hyperlipidemia, unspecified; K21.9 Gastro-esophageal reflux disease without esophagitis; I50.9 Heart failure, unspecified; Z87.891 Personal history of nicotine dependence; Z88.6 Allergy status to analgesic agent
CPT/HCPCS: 71020; 80053; 81003; 82803; 83605; 85025; 87040; 99281; 99285; J3370

== ENCOUNTER → 2017-07-19 | Outpatient (CLI) | payer OTHER ==
[~2017-07-19] MED LIST changes: +AMLOD-VALSA-HC1 EAC3 PO; +CYMBALTA20 MG PO
== END | disposition home or self-care (01) ==
LOC: AMB 09:39
PROC: 02PYX3Z Removal of Infusion Device from Great Vessel, External Approach (ICD-10-PCS; principal; 2017-07-19)
DX: Z45.2 Encounter for adjustment and management of vascular access device (principal); N18.6 End stage renal disease; Z99.2 Dependence on renal dialysis

== ENCOUNTER 2017-10-12 10:51 | Inpatient (IN) | payer OTHER ==
[~2017-10-12] VITALS: Ht 157.5 cm; Wt 63.4 kg
[~2017-10-12 10:51] MED LIST changes: +AMBIEN10 MG PO; -CYMBALTA20 MG PO; +CYMBALTA60 MG PO; -LYRICA50 MG PO
[2017-10-12 11:17] LABS: BASOPHIL (%) 0.2 % (0-1); EOSINOPHIL (%) 0 % (0-5); HEMATOCRIT 26.1 % (36.0-46.0); HEMOGLOBIN 9.8 G/DL (11.9-15.5); LYMPHOCYTE (%) 12.9 % (15-42); LYMPHOCYTE COUNT 1.3 K/uL (1.0-2.8); MCHC 37.5 G/DL (30.0-36.0); MCV 79.8 FL (83-99); MONOCYTE (%) 6.2 % (3-12); MONOCYTE COUNT 0.6 K/uL (0-0.8); NEUTROPHIL (%) 79.7 % (45-76); NEUTROPHIL COUNT 8.2 K/uL (1.8-6.4); PLATELET COUNT 258 K/uL (156-360); RBC DIS.WIDTH-CV 14.8 % (11.8-14.6); RBC DIS.WIDTH-SD 42.4 % (39-53); RED BLOOD COUNT 3.27 M/uL (3.80-5.20); WHITE BLOOD COUNT 10.3 K/uL (4.1-10.2)
[2017-10-12 11:25] LABS: AMYLASE 51 IU/L (1-118); CHLORIDE 91 mEq/L (99-109); POTASSIUM 3.6 mEq/L (3.7-5.4); PTT 22.1 SEC (25-37); SODIUM 130 mEq/L (136-147)
[2017-10-12 11:30] LABS: SERUM ETHYL ALCOHOL < 10 mg/dL
[2017-10-12 11:31] LABS: CREATININE 3.5 mg/dL (0.6-1.3); GFR ESTIMATE (CALCULATED) 15 mL/min/; UREA NITROGEN (BUN) 35 mg/dL (9-23)
[2017-10-12 11:34] LABS: LIPASE 44 U/L (1.0-51.0)
[2017-10-12 11:37] LABS: TROP-I INTERPRETATION NEGATIVE; TROPONIN-I 0.25 ng/mL (0.0-0.30)
[2017-10-12 11:38] LABS: GLUCOSE 590 mg/dL (70-99)
[2017-10-12 11:39] LABS: QUANTITATIVE HCG 5.6 MIU/ML
[2017-10-12] MEDS ORDERED: AMLODIPINE BESY10 MG PO (14:37)
[2017-10-12] MEDS ORDERED: VALTREX1000 MG PO (14:39)
[2017-10-12] MEDS ORDERED: RENVELA800 MG PO ×2 (14:40)
[2017-10-12 18:05] VITALS: BP 190/94
[2017-10-12 20:00] VITALS: BP 172/89
[2017-10-12 23:39] VITALS: BP 183/90
[2017-10-13 03:45] VITALS: BP 188/88
[2017-10-13 05:29] LABS: HEMATOCRIT 26.7 % (36.0-46.0); HEMOGLOBIN 9.6 G/DL (11.9-15.5); MCH 29.7 PG (29.0-34.0); MCV 82.7 FL (83-99); PLATELET COUNT 277 K/uL (156-360); RBC DIS.WIDTH-CV 15.7 % (11.8-14.6); RBC DIS.WIDTH-SD 46.2 % (39-53); RED BLOOD COUNT 3.23 M/uL (3.80-5.20); WHITE BLOOD COUNT 11.5 K/uL (4.1-10.2)
[2017-10-13 05:44] LABS: CHLORIDE 98 MEQ/L (99-109); POTASSIUM 2.9 MEQ/L (3.7-5.4); SODIUM 133 MEQ/L (136-147)
[2017-10-13 05:50] LABS: GFR ESTIMATE (CALCULATED) 11 mL/min/; UREA NITROGEN (BUN) 45 mg/dL (9-23)
[2017-10-13 05:52] LABS: CREATININE 4.3 MG/DL (0.6-1.3); GLUCOSE 79 mg/dL (70-99)
[2017-10-13 07:38] VITALS: BP 176/82
[2017-10-13 09:46] LABS: Estimated Average Glucose 272 mg/dL (70-123); HEMOGLOBIN A1c (GLYCOHEMOGLOB) 11.1 % HGB (Below 5.7)
[2017-10-13 12:11] VITALS: BP 185/88
[2017-10-13 17:00] VITALS: BP 120/64
[2017-10-13 20:00] VITALS: BP 132/76
[2017-10-13 23:26] VITALS: BP 159/82
[2017-10-14 03:19] VITALS: BP 140/62
[2017-10-14 08:08] LABS: BASOPHIL (%) 0.7 % (0-1); BASOPHIL COUNT 0.1 K/uL (0-0.1); EOSINOPHIL (%) 1.8 % (0-5); EOSINOPHIL COUNT 0.2 K/uL (0-0.3); HEMATOCRIT 24.3 % (36.0-46.0); HEMOGLOBIN 8.4 G/DL (11.9-15.5); IMMATURE GRANULOCYTE (%) 1.5 % (0.0-0.7); LYMPHOCYTE (%) 23.4 % (15-42); LYMPHOCYTE COUNT 2.1 K/uL (1.0-2.8); MCH 29.9 PG (29.0-34.0); MCHC 34.6 G/DL (30.0-36.0); MCV 86.5 FL (83-99); MONOCYTE (%) 8.4 % (3-12); MONOCYTE COUNT 0.8 K/uL (0-0.8); NEUTROPHIL (%) 64.2 % (45-76); NEUTROPHIL COUNT 5.8 K/uL (1.8-6.4); PLATELET COUNT 260 K/uL (156-360); RBC DIS.WIDTH-CV 16.7 % (11.8-14.6); RBC DIS.WIDTH-SD 52.1 % (39-53); RED BLOOD COUNT 2.81 M/uL (3.80-5.20)
[2017-10-14 08:32] LABS: CHLORIDE 99 MEQ/L (99-109); SODIUM 130 MEQ/L (136-147); UREA NITROGEN (BUN) 48 mg/dL (9-23)
[2017-10-14 08:48] LABS: CREATININE 5.4 MG/DL (0.6-1.3); GFR ESTIMATE (CALCULATED) 9 mL/min/; GLUCOSE 195 mg/dL (70-99); POTASSIUM 4.6 MEQ/L (3.7-5.4)
[2017-10-14 11:40] VITALS: BP 147/74
[2017-10-14 15:39] VITALS: BP 157/81
[2017-10-14 23:04] VITALS: BP 150/77
[2017-10-15 03:13] VITALS: BP 162/74
[2017-10-15 08:41] VITALS: BP 169/83
[2017-10-15 10:26] LABS: BASOPHIL (%) 0.8 % (0-1); BASOPHIL COUNT 0.1 K/uL (0-0.1); EOSINOPHIL (%) 1.7 % (0-5); EOSINOPHIL COUNT 0.1 K/uL (0-0.3); HEMATOCRIT 29.5 % (36.0-46.0); HEMOGLOBIN 10.2 G/DL (11.9-15.5); IMMATURE GRANULOCYTE (%) 1.3 % (0.0-0.7); LYMPHOCYTE (%) 16.4 % (15-42); LYMPHOCYTE COUNT 1.4 K/uL (1.0-2.8); MCH 30.9 PG (29.0-34.0); MCHC 34.6 G/DL (30.0-36.0); MCV 89.4 FL (83-99); MONOCYTE (%) 6.3 % (3-12); MONOCYTE COUNT 0.5 K/uL (0-0.8); NEUTROPHIL (%) 73.5 % (45-76); NEUTROPHIL COUNT 6.1 K/uL (1.8-6.4); NRBC (%) 0.2 /100 WBC (0-0); PLATELET COUNT 249 K/uL (156-360); RBC DIS.WIDTH-CV 17.2 % (11.8-14.6); RBC DIS.WIDTH-SD 54.4 % (39-53); WHITE BLOOD COUNT 8.3 K/uL (4.1-10.2)
[2017-10-15 10:37] LABS: ALBUMIN 3.7 G/DL (3.2-4.8); ALKALINE PHOSPHATASE 124 IU/L (3-129); ALT (GPT) 18 IU/L (3-49); AST (GOT) 31 IU/L (2-34); CHLORIDE 95 MEQ/L (99-109); GLUCOSE 252 mg/dL (70-99); IRON 40 MCG/DL (35-150); SODIUM 136 MEQ/L (136-147); TOTAL BILIRUBIN 0.6 MG/DL (0.0-1.0); TOTAL PROTEIN 6.4 G/DL (6.4-8.3); TRANSFERRIN (TIBC) 180.6 mg/dL (215-380); TRANSFERRIN SATUR. 22 % (20-55); UREA NITROGEN (BUN) 27 mg/dL (9-23)
[2017-10-15 10:38] LABS: CREATININE 4.2 MG/DL (0.6-1.3); GFR ESTIMATE (CALCULATED) 12 mL/min/
[2017-10-15 11:06] LABS: HEPATITIS B SURFACE ANTIBODY Nonreactive; HEPATITIS B SURFACE ANTIGEN Nonreactive
[2017-10-15 13:00] VITALS: BP 163/80
[2017-10-15 20:13] VITALS: BP 148/78
[2017-10-15 23:59] VITALS: BP 136/72
[2017-10-16 01:45] LABS: BASOPHIL (%) 0.7 % (0-1); BASOPHIL COUNT 0.1 K/uL (0-0.1); EOSINOPHIL (%) 2.3 % (0-5); EOSINOPHIL COUNT 0.3 K/uL (0-0.3); HEMATOCRIT 30.3 % (36.0-46.0); HEMOGLOBIN 10.3 G/DL (11.9-15.5); IMMATURE GRANULOCYTE (%) 1.8 % (0.0-0.7); LYMPHOCYTE (%) 33.4 % (15-42); LYMPHOCYTE COUNT 3.7 K/uL (1.0-2.8); MCV 88.3 FL (83-99); MONOCYTE (%) 8.9 % (3-12); NEUTROPHIL (%) 52.9 % (45-76); NEUTROPHIL COUNT 5.9 K/uL (1.8-6.4); NRBC (%) 0.3 /100 WBC (0-0); PLATELET COUNT 322 K/uL (156-360); RBC DIS.WIDTH-CV 17.1 % (11.8-14.6); RBC DIS.WIDTH-SD 54.3 % (39-53); RED BLOOD COUNT 3.43 M/uL (3.80-5.20); WHITE BLOOD COUNT 11.2 K/uL (4.1-10.2)
[2017-10-16 02:00] LABS: POTASSIUM 3.2 mEq/L (3.7-5.4); SODIUM 137 mEq/L (136-147)
[2017-10-16 02:05] LABS: TROP-I INTERPRETATION NEGATIVE; TROPONIN-I 0.11 ng/mL (0.0-0.30)
[2017-10-16 02:06] LABS: UREA NITROGEN (BUN) 32 mg/dL (9-23)
[2017-10-16 02:09] LABS: CREATININE 5.1 mg/dL (0.6-1.3); GLUCOSE 77 mg/dL (70-99)
[2017-10-16 02:10] LABS: CHLORIDE 101 mEq/L (99-109); GFR ESTIMATE (CALCULATED) 9 mL/min/
[2017-10-16 04:03] VITALS: BP 120/60
[2017-10-16 05:45] LABS: BASOPHIL (%) 0.9 % (0-1); BASOPHIL COUNT 0.1 K/uL (0-0.1); EOSINOPHIL (%) 1.4 % (0-5); EOSINOPHIL COUNT 0.1 K/uL (0-0.3); HEMATOCRIT 30.9 % (36.0-46.0); HEMOGLOBIN 10.2 G/DL (11.9-15.5); IMMATURE GRANULOCYTE (%) 2.9 % (0.0-0.7); LYMPHOCYTE (%) 22.9 % (15-42); LYMPHOCYTE COUNT 1.8 K/uL (1.0-2.8); MCH 29.8 PG (29.0-34.0); MCV 90.4 FL (83-99); MONOCYTE (%) 9.6 % (3-12); MONOCYTE COUNT 0.8 K/uL (0-0.8); NEUTROPHIL (%) 62.3 % (45-76); NEUTROPHIL COUNT 4.9 K/uL (1.8-6.4); NRBC (%) 0.4 /100 WBC (0-0); PLATELET COUNT 247 K/uL (156-360); RBC DIS.WIDTH-CV 17.2 % (11.8-14.6); RBC DIS.WIDTH-SD 54.7 % (39-53); RED BLOOD COUNT 3.42 M/uL (3.80-5.20); WHITE BLOOD COUNT 7.9 K/uL (4.1-10.2)
[2017-10-16 06:11] LABS: CHLORIDE 100 MEQ/L (99-109); CREATININE 5.2 MG/DL (0.6-1.3); GFR ESTIMATE (CALCULATED) 9 mL/min/; GLUCOSE 88 mg/dL (70-99); SODIUM 138 MEQ/L (136-147); UREA NITROGEN (BUN) 32 mg/dL (9-23)
[2017-10-16 06:14] LABS: POTASSIUM 3.9 MEQ/L (3.7-5.4)
[2017-10-16 07:45] VITALS: BP 142/93
[2017-10-16 12:12] VITALS: BP 143/76
[2017-10-16 15:29] VITALS: BP 130/73
[2017-10-16 22:39] VITALS: BP 127/74
[2017-10-16 23:38] VITALS: BP 136/73
[2017-10-17 03:55] VITALS: BP 135/75
[2017-10-17 06:36] LABS: CHLORIDE 107 MEQ/L (99-109); GLUCOSE 94 mg/dL (70-99); SODIUM 143 MEQ/L (136-147); UREA NITROGEN (BUN) 29 mg/dL (9-23)
[2017-10-17 06:37] LABS: CREATININE 1.2 MG/DL (0.6-1.3); GFR ESTIMATE (CALCULATED) 50 mL/min/; POTASSIUM 4.7 MEQ/L (3.7-5.4)
[2017-10-17 06:59] LABS: BASOPHIL (%) 0.9 % (0-1); BASOPHIL COUNT 0.1 K/uL (0-0.1); EOSINOPHIL (%) 2.6 % (0-5); EOSINOPHIL COUNT 0.2 K/uL (0-0.3); HEMATOCRIT 35.5 % (36.0-46.0); HEMOGLOBIN 11.1 G/DL (11.9-15.5); IMMATURE GRANULOCYTE (%) 0.3 % (0.0-0.7); LYMPHOCYTE (%) 15.3 % (15-42); LYMPHOCYTE COUNT 1.1 K/uL (1.0-2.8); MCHC 31.3 G/DL (30.0-36.0); MCV 92.7 FL (83-99); MONOCYTE (%) 12.2 % (3-12); MONOCYTE COUNT 0.8 K/uL (0-0.8); NEUTROPHIL (%) 68.7 % (45-76); NEUTROPHIL COUNT 4.8 K/uL (1.8-6.4); PLATELET COUNT 296 K/uL (156-360); RBC DIS.WIDTH-CV 13.9 % (11.8-14.6); RBC DIS.WIDTH-SD 47.5 % (39-53); RED BLOOD COUNT 3.83 M/uL (3.80-5.20); WHITE BLOOD COUNT 6.9 K/uL (4.1-10.2)
[2017-10-17] MEDS ORDERED: METOPROLOL SUC100 MG PO (12:19)
== END 2017-10-17 13:28 | disposition home or self-care (01) | DRG 637 ==
LOC: EME 10:51 → EDOF 12:49 → 5WEST 12:49 → EDOF 12:49 → ENRESERV 12:53 → 5WEST 17:53
PROVIDERS: Emergency Medicine; Internal Medicine; Internal Medicine Nephrology
DX: E11.10 Type 2 diabetes mellitus with ketoacidosis without coma (principal); G93.41 Metabolic encephalopathy; I16.0 Hypertensive urgency; I13.2 Hypertensive heart and chronic kidney disease with heart failure and with stage 5 chronic kidney disease, or end stage renal disease; E11.22 Type 2 diabetes mellitus with diabetic chronic kidney disease; N18.6 End stage renal disease; I50.9 Heart failure, unspecified; D50.9 Iron deficiency anemia, unspecified; E87.1 Hypo-osmolality and hyponatremia; E87.6 Hypokalemia; I65.23 Occlusion and stenosis of bilateral carotid arteries; E11.42 Type 2 diabetes mellitus with diabetic polyneuropathy; R47.01 Aphasia; F05 Delirium due to known physiological condition; G43.909 Migraine, unspecified, not intractable, without status migrainosus; G89.29 Other chronic pain; M54.9 Dorsalgia, unspecified; R91.1 Solitary pulmonary nodule; I25.10 Atherosclerotic heart disease of native coronary artery without angina pectoris; I25.2 Old myocardial infarction; K21.9 Gastro-esophageal reflux disease without esophagitis; E78.5 Hyperlipidemia, unspecified; F32.9 Major depressive disorder, single episode, unspecified; F41.9 Anxiety disorder, unspecified; R00.0 Tachycardia, unspecified; R45.87 Impulsiveness; Z99.2 Dependence on renal dialysis; Z95.1 Presence of aortocoronary bypass graft; Z79.4 Long term (current) use of insulin; Z80.8 Family history of malignant neoplasm of other organs or systems; Z82.49 Family history of ischemic heart disease and other diseases of the circulatory system; Z87.891 Personal history of nicotine dependence
CPT/HCPCS: 70450; 70496; 70498; 70551; 80048; 80048 91; 80053; 81003; 82010; 82140; 82150; 82948; 83036; 83540; 83605; 83690; 84466; 84484; 84702; 85025; 85025 91; 85027; 85610; 85730; 86706; 86850; 86900; 86901; 87340; 93005; 99281; 99285; G0378; G0480; J0360; J0881; J1270; J1644; J1756; J1815; J2270; J2310; J7030; J7040

== ENCOUNTER → 2017-12-19 | Outpatient (CLI) | payer MEDICARE, OTHER ==
[~2017-12-19] MED LIST changes: +METOPROLOL SUC100 MG PO; +RENVELA800 MG PO
== END | disposition home or self-care (01) ==
LOC: CDC 12:38
DX: Z01.810 Encounter for preprocedural cardiovascular examination (principal); R94.31 Abnormal electrocardiogram [ECG] [EKG]
CPT/HCPCS: 93000

== ENCOUNTER 2018-01-11 02:48 | Observation (INO) | payer OTHER ==
[~2018-01-11] VITALS: Ht 157.5 cm; Wt 64.1 kg
[2018-01-11 03:14] LABS: HEMATOCRIT 30.6 % (36.0-46.0); MCH 30.7 PG (29.0-34.0); MCHC 34.6 G/DL (30.0-36.0); MCV 88.7 FL (83-99); PLATELET COUNT 204 K/uL (156-360); RBC DIS.WIDTH-CV 15.9 % (11.8-14.6); RED BLOOD COUNT 3.45 M/uL (3.80-5.20); WHITE BLOOD COUNT 8.9 K/uL (4.1-10.2)
[2018-01-11 03:17] LABS: HEMOGLOBIN 10.6 G/DL (11.9-15.5)
[2018-01-11 03:28] LABS: CHLORIDE 96 mEq/L (99-109); POTASSIUM 3.4 mEq/L (3.7-5.4); SODIUM 139 mEq/L (136-147)
[2018-01-11 03:29] LABS: GLUCOSE 237 mg/dL (70-99)
[2018-01-11 03:33] LABS: CREATININE 4.7 mg/dL (0.6-1.3); GFR ESTIMATE (CALCULATED) 10 mL/min/
[2018-01-11 03:34] LABS: UREA NITROGEN (BUN) 28 mg/dL (9-23)
[2018-01-11 03:37] LABS: TROP-I INTERPRETATION NEGATIVE; TROPONIN-I 0.11 ng/mL (0.0-0.30)
[2018-01-11 06:30] LABS: BASE EXCESS 10.6 mEq/L (-3 to +3); BICARBONATE 34.3 mEq/L (22-26); CARBOXY HGB 2.8 % (0-5); METHEMOGLOBIN 0.7 % (0-1.5); PCO2 41 mm Hg (35-45); PO2 62 mm Hg (80-100)
[2018-01-11 06:31] LABS: COMMENTS - BLOOD GASES C; FI02 21 %; SITE RB; pH 7.53 (7.35-7.45)
[2018-01-11 07:50] LABS: COCAINE NEGATIVE (150 ng/mL); METHAMPHETAMINE NEGATIVE (500 ng/mL); PHENCYCLIDINE NEGATIVE (25 ng/mL); THC CANNABINOIDS NEGATIVE (50 ng/mL)
[2018-01-11 07:51] LABS: AMPHETAMINE NEGATIVE (500 ng/mL); BARBITURATES NEGATIVE (200 ng/mL); BENZODIAZEPINES NEGATIVE (150 ng/mL); BUPRENORPHINE NEGATIVE (10 ng/mL); METHADONE NEGATIVE (200 ng/mL); OPIATES (MORPHINE) NEGATIVE (100 ng/mL); OXYCODONE PRESUMPTIVE POSITIVE (100 ng/mL); PROPOXYPHENE NEGATIVE (300 ng/mL); TRICYCLIC ANTIDEPRESSANTS NEGATIVE (300 ng/mL)
[2018-01-11] MEDS ORDERED: CILOSTAZOL100 MG PO (09:04)
[2018-01-11] MEDS ORDERED: LANTUS 10100 UNITS/ SC (09:05)
[2018-01-11] MEDS ORDERED: HAIR SKIN NAIL1 EACH PO (09:06)
[2018-01-11] MEDS ORDERED: MEGARED OMEGA-1 EACH PO (09:06)
[2018-01-11] MEDS ORDERED: LYRICA100 MG PO (09:06)
[2018-01-11] MEDS ORDERED: RENAPLEX-D TAB1 EACH PO (09:06)
[2018-01-11] MEDS ORDERED: CRESTOR10 MG PO (09:06)
[2018-01-11 14:17] VITALS: BP 170/92
[2018-01-11] MEDS ORDERED: OXYCODONE HCL15 MG PO (15:12)
[2018-01-11 15:34] LABS: TROP-I INTERPRETATION NEGATIVE
[2018-01-11 18:29] LABS: TROP-I INTERPRETATION NEGATIVE; TROPONIN-I 0.18 ng/mL (0.0-0.30)
[2018-01-11 18:30] VITALS: BP 138/80
[2018-01-11 21:00] VITALS: BP 167/91
[2018-01-12 00:10] VITALS: BP 157/83
[2018-01-12 06:12] LABS: ALBUMIN 3.5 G/DL (3.2-4.8); ALKALINE PHOSPHATASE 92 IU/L (3-129); ALT (GPT) 12 IU/L (3-49); AST (GOT) 23 IU/L (2-34); CHLORIDE 93 MEQ/L (99-109); GFR ESTIMATE (CALCULATED) 15 mL/min/; POTASSIUM 3.5 MEQ/L (3.7-5.4); SODIUM 138 MEQ/L (136-147); TOTAL BILIRUBIN 0.5 MG/DL (0.0-1.0); TOTAL PROTEIN 5.6 G/DL (6.4-8.3); UREA NITROGEN (BUN) 22 mg/dL (9-23)
[2018-01-12 06:16] LABS: CREATININE 3.4 MG/DL (0.6-1.3); GLUCOSE 105 mg/dL (70-99)
[2018-01-12 07:30] VITALS: BP 126/69
[2018-01-12] MEDS ORDERED: METOPROLOL SUCC50 MG PO (08:44)
[2018-01-12 10:58] VITALS: BP 126/63
== END 2018-01-12 12:18 | disposition home or self-care (01) ==
LOC: EME → EDBD 02:48 → EME 02:48 → EDOF 04:10 → 5WEST 04:10 → EDOF 04:10 → ENRESERV 04:12 → 5WEST 13:47
PROVIDERS: Emergency Medicine; Hospitalist
PROC: 5A1D70Z Performance of Urinary Filtration, Intermittent, Less than 6 Hours Per Day (ICD-10-PCS; principal; 2018-01-11)
DX: R07.89 Other chest pain (principal); I16.0 Hypertensive urgency; I13.2 Hypertensive heart and chronic kidney disease with heart failure and with stage 5 chronic kidney disease, or end stage renal disease; I50.9 Heart failure, unspecified; N18.6 End stage renal disease; Z99.2 Dependence on renal dialysis; E11.22 Type 2 diabetes mellitus with diabetic chronic kidney disease; E87.6 Hypokalemia; E11.65 Type 2 diabetes mellitus with hyperglycemia; E11.649 Type 2 diabetes mellitus with hypoglycemia without coma; G89.29 Other chronic pain; M54.9 Dorsalgia, unspecified; D63.1 Anemia in chronic kidney disease; R09.02 Hypoxemia; I25.10 Atherosclerotic heart disease of native coronary artery without angina pectoris; Z95.1 Presence of aortocoronary bypass graft; I25.2 Old myocardial infarction; Z79.4 Long term (current) use of insulin; K21.9 Gastro-esophageal reflux disease without esophagitis; E78.5 Hyperlipidemia, unspecified; Z88.6 Allergy status to analgesic agent; Z88.5 Allergy status to narcotic agent; Z88.8 Allergy status to other drugs, medicaments and biological substances; Z87.891 Personal history of nicotine dependence; Z82.49 Family history of ischemic heart disease and other diseases of the circulatory system; Z82.3 Family history of stroke; Z80.3 Family history of malignant neoplasm of breast
CPT/HCPCS: 36600; 71045; 71275; 80048; 80053; 80306 90; 82803; 82948; 83880; 84484; 85027; 93005; 94799; 99281; 99285; G0257; G0378; J0360

== ENCOUNTER 2018-03-03 07:37 | Emergency (ER) | payer OTHER ==
[~2018-03-03] VITALS: Ht 157.5 cm; Wt 63.7 kg
[~2018-03-03 07:37] MED LIST changes: +CILOSTAZOL100 MG PO; +CRESTOR10 MG PO; +HAIR SKIN NAIL1 EACH PO; +LANTUS 10100 UNITS/ SC; +MEGARED OMEGA-1 EACH PO; +METOPROLOL SUCC50 MG PO; +RENAPLEX-D TAB1 EACH PO
[2018-03-03 09:14] LABS: HEMATOCRIT 37.7 % (36.0-46.0); HEMOGLOBIN 13.4 G/DL (11.9-15.5); MCH 30.6 PG (29.0-34.0); MCHC 35.5 G/DL (30.0-36.0); MCV 86.1 FL (83-99); PLATELET COUNT 178 K/uL (156-360); RBC DIS.WIDTH-CV 14.6 % (11.8-14.6); RBC DIS.WIDTH-SD 46.2 % (39-53); RED BLOOD COUNT 4.38 M/uL (3.80-5.20); WHITE BLOOD COUNT 7.2 K/uL (4.1-10.2)
[2018-03-03 09:21] LABS: ALBUMIN 3.7 g/dL (3.2-4.8); CHLORIDE 97 mEq/L (99-109); POTASSIUM 3.8 mEq/L (3.7-5.4); SODIUM 138 mEq/L (136-147)
[2018-03-03 09:23] LABS: GLUCOSE 321 mg/dL (70-99); PTT 31.1 SEC (25-37)
[2018-03-03 09:24] LABS: TOTAL PROTEIN 7.3 g/dL (6.4-8.3)
[2018-03-03 09:25] LABS: TOTAL BILIRUBIN 0.5 mg/dL (0.0-1.0)
[2018-03-03 09:27] LABS: ALKALINE PHOSPHATASE 120 IU/L (3-129); CREATININE 5.4 mg/dL (0.6-1.3); GFR ESTIMATE (CALCULATED) 9 mL/min/
[2018-03-03 09:28] LABS: UREA NITROGEN (BUN) 27 mg/dL (9-23)
[2018-03-03 09:29] LABS: AST (GOT) 25 IU/L (2-34)
[2018-03-03 09:30] LABS: ALT (GPT) 10 IU/L (3-49)
[2018-03-03 09:31] LABS: TROP-I INTERPRETATION NEGATIVE; TROPONIN-I 0.12 ng/mL (0.0-0.30)
[2018-03-03 10:30] VITALS: BP 204/120
== END 2018-03-03 10:15 | disposition home or self-care (01) ==
LOC: EME 07:37
PROVIDERS: Emergency Medicine Emergency Medical Services
DX: R42 Dizziness and giddiness (principal); S09.90XA Unspecified injury of head, initial encounter; I13.0 Hypertensive heart and chronic kidney disease with heart failure and stage 1 through stage 4 chronic kidney disease, or unspecified chronic kidney disease; E11.22 Type 2 diabetes mellitus with diabetic chronic kidney disease; N18.9 Chronic kidney disease, unspecified; I50.9 Heart failure, unspecified; E11.65 Type 2 diabetes mellitus with hyperglycemia; W19.XXXA Unspecified fall, initial encounter; Z79.4 Long term (current) use of insulin; Z99.2 Dependence on renal dialysis; E78.5 Hyperlipidemia, unspecified; F32.9 Major depressive disorder, single episode, unspecified; F41.9 Anxiety disorder, unspecified; I25.2 Old myocardial infarction; Z95.1 Presence of aortocoronary bypass graft; Z87.891 Personal history of nicotine dependence; K21.9 Gastro-esophageal reflux disease without esophagitis
CPT/HCPCS: 70450; 71045; 80053; 81003; 84484; 85027; 85610; 85730; 93005; 99281; 99285; J7040

== ENCOUNTER 2018-03-08 23:27 | Observation (INO) | payer OTHER ==
[~2018-03-08] VITALS: Ht 157.5 cm; Wt 65.9 kg
[2018-03-08 23:53] LABS: HEMATOCRIT 29.3 % (36.0-46.0); HEMOGLOBIN 10.2 G/DL (11.9-15.5); MCH 30.4 PG (29.0-34.0); MCHC 34.8 G/DL (30.0-36.0); MCV 87.2 FL (83-99); PLATELET COUNT 129 K/uL (156-360); RBC DIS.WIDTH-CV 14.6 % (11.8-14.6); RBC DIS.WIDTH-SD 46.6 % (39-53); RED BLOOD COUNT 3.36 M/uL (3.80-5.20); WHITE BLOOD COUNT 4.9 K/uL (4.1-10.2)
[2018-03-08 23:58] LABS: ALBUMIN 3.3 g/dL (3.2-4.8)
[2018-03-08 23:59] LABS: CHLORIDE 89 mEq/L (99-109); POTASSIUM 3.1 mEq/L (3.7-5.4); SODIUM 134 mEq/L (136-147)
[2018-03-09 00:04] LABS: ALKALINE PHOSPHATASE 118 IU/L (3-129)
[2018-03-09 00:06] LABS: UREA NITROGEN (BUN) 10 mg/dL (9-23)
[2018-03-09 00:08] LABS: LIPASE 59 U/L (1.0-51.0)
[2018-03-09 00:10] LABS: TROP-I INTERPRETATION NEGATIVE
[2018-03-09 00:15] LABS: ALT (GPT) 28 IU/L (3-49); AST (GOT) 53 IU/L (2-34); CREATININE 3.5 mg/dL (0.6-1.3); GFR ESTIMATE (CALCULATED) 15 mL/min/; GLUCOSE 476 mg/dL (70-99); TOTAL BILIRUBIN 0.3 mg/dL (0.0-1.0); TOTAL PROTEIN 5.9 g/dL (6.4-8.3)
[2018-03-09 03:30] VITALS: BP 158/82
[2018-03-09] MEDS ORDERED: LABETALOL HCL200 MG PO ×2 (03:54→11:12)
[2018-03-09] MEDS ORDERED: OXYCODONE HCL15 MG PO (03:58)
[2018-03-09 07:04] LABS: TROP-I INTERPRETATION NEGATIVE; TROPONIN-I 0.08 ng/mL (0.0-0.30)
[2018-03-09 07:08] LABS: ALBUMIN 3.7 G/DL (3.2-4.8); ALKALINE PHOSPHATASE 114 IU/L (3-129); ALT (GPT) 40 IU/L (3-49); AST (GOT) 78 IU/L (2-34); CHLORIDE 91 MEQ/L (99-109); CREATININE 3.6 MG/DL (0.6-1.3); GFR ESTIMATE (CALCULATED) 14 mL/min/; GLUCOSE 130 mg/dL (70-99); POTASSIUM 3.4 MEQ/L (3.7-5.4); SODIUM 138 MEQ/L (136-147); TOTAL BILIRUBIN 0.4 MG/DL (0.0-1.0); TOTAL PROTEIN 6.4 G/DL (6.4-8.3); UREA NITROGEN (BUN) 14 mg/dL (9-23)
[2018-03-09 07:56] VITALS: BP 160/62
[2018-03-09] MEDS ORDERED: LOSARTAN POTASS50 MG PO (10:52)
[2018-03-09] MEDS ORDERED: DEPAKOTE ER500 MG PO (10:52)
[2018-03-09] MEDS ORDERED: DULOXETINE HCL60 MG PO (10:52)
[2018-03-09] MEDS ORDERED: ESOMEPRAZOLE MA40 MG PO (10:53)
[2018-03-09] MEDS ORDERED: RENVELA800 MG PO ×2 (10:54→10:55)
[2018-03-09] MEDS ORDERED: SUMATRIPTAN SU100 MG PO (10:55)
[2018-03-09] MEDS ORDERED: LYRICA100 MG PO (10:55)
[2018-03-09] MEDS ORDERED: LANTUS 10100 UNITS/ SC (10:56)
[2018-03-09] MEDS ORDERED: ROSUVASTATIN CA10 MG PO (10:57)
[2018-03-09] MEDS ORDERED: TYLENOL REGULA325 MG PO (10:58)
[2018-03-09] MEDS ORDERED: CILOSTAZOL100 MG PO (10:58)
[2018-03-09] MEDS ORDERED: ZOFRAN4 MG PO (11:16)
[2018-03-09] MEDS ORDERED: AMLOD-VALSA-HC1 EAC1 PO (11:18)
[2018-03-09] MEDS ORDERED: NITROSTAT0.4 MG SL (11:19)
[2018-03-09] MEDS ORDERED: RENAPLEX-D TAB1 EACH PO (11:22)
[2018-03-09] MEDS ORDERED: VALTREX1000 MG PO (11:23)
[2018-03-09] MEDS ORDERED: ADULT ASPIRIN81 MG PO (11:25)
[2018-03-09 11:58] VITALS: BP 156/82
[2018-03-09 12:56] LABS: TROP-I INTERPRETATION NEGATIVE; TROPONIN-I 0.09 ng/mL (0.0-0.30)
[2018-03-09 15:52] VITALS: BP 184/90
[2018-03-09 20:00] VITALS: BP 196/60
[2018-03-09 23:59] VITALS: BP 130/56
[2018-03-10 05:03] VITALS: BP 118/59
[2018-03-10 07:40] VITALS: BP 126/60
[2018-03-10 09:11] LABS: BASOPHIL (%) 0.6 % (0-1); EOSINOPHIL (%) 1.3 % (0-5); EOSINOPHIL COUNT 0.1 K/uL (0-0.3); HEMATOCRIT 30.6 % (36.0-46.0); HEMOGLOBIN 10.3 G/DL (11.9-15.5); IMMATURE GRANULOCYTE (%) 0.3 % (0.0-0.7); LYMPHOCYTE (%) 23.3 % (15-42); LYMPHOCYTE COUNT 1.6 K/uL (1.0-2.8); MCH 29.3 PG (29.0-34.0); MCHC 33.7 G/DL (30.0-36.0); MCV 87.2 FL (83-99); MONOCYTE (%) 8.4 % (3-12); MONOCYTE COUNT 0.6 K/uL (0-0.8); NEUTROPHIL (%) 66.1 % (45-76); NEUTROPHIL COUNT 4.5 K/uL (1.8-6.4); PLATELET COUNT 147 K/uL (156-360); RBC DIS.WIDTH-CV 14.8 % (11.8-14.6); RBC DIS.WIDTH-SD 47.8 % (39-53); RED BLOOD COUNT 3.51 M/uL (3.80-5.20); WHITE BLOOD COUNT 6.8 K/uL (4.1-10.2)
[2018-03-10 09:50] LABS: CHLORIDE 92 MEQ/L (99-109); POTASSIUM 3.3 MEQ/L (3.7-5.4); SODIUM 134 MEQ/L (136-147)
[2018-03-10 09:56] LABS: GFR ESTIMATE (CALCULATED) 10 mL/min/; GLUCOSE 117 mg/dL (70-99)
[2018-03-10 09:59] LABS: UREA NITROGEN (BUN) 25 mg/dL (9-23)
[2018-03-10 13:42] LABS: APPEARANCE TURBID ((CLEAR)); BILIRUBIN NEGATIVE; BLOOD NEGATIVE; COLOR AMBER ((YELLOW)); GLUCOSE (STRIP) NEGATIVE; KETONES NEGATIVE; LEUKOCYTES LARGE; NITRITE NEGATIVE; PROTEIN (STRIP) >=500; SPECIFIC GRAVITY 1.011 (1.000-1.030); UROBILINOGEN 0.2 MG/DL (0.2-1.0)
[2018-03-10 14:43] LABS: EPITHELIAL CELLS 1+ /HPF; MUCUS NONE SEEN /LPF
[2018-03-10 14:44] LABS: BACTERIA 4+ /HPF; RED BLOOD CELLS NONE SEEN /HPF (0-5); UCUL ADDED? YES; WHITE BLOOD CELLS TNTC /HPF (0-5)
[2018-03-10 16:09] VITALS: BP 109/59
[2018-03-10 20:13] VITALS: BP 114/55
[2018-03-11] VITALS (7 sets, daily range): BP systolic 95–133; BP diastolic 52–64
[2018-03-11 05:24] LABS: BASOPHIL (%) 0.9 % (0-1); BASOPHIL COUNT 0.1 K/uL (0-0.1); EOSINOPHIL (%) 2.1 % (0-5); EOSINOPHIL COUNT 0.1 K/uL (0-0.3); HEMATOCRIT 27.7 % (36.0-46.0); HEMOGLOBIN 9.2 G/DL (11.9-15.5); IMMATURE GRANULOCYTE (%) 0.3 % (0.0-0.7); LYMPHOCYTE (%) 36.3 % (15-42); LYMPHOCYTE COUNT 2.1 K/uL (1.0-2.8); MCH 29.7 PG (29.0-34.0); MCHC 33.2 G/DL (30.0-36.0); MCV 89.4 FL (83-99); MONOCYTE (%) 9.9 % (3-12); MONOCYTE COUNT 0.6 K/uL (0-0.8); NEUTROPHIL (%) 50.5 % (45-76); NEUTROPHIL COUNT 2.9 K/uL (1.8-6.4); PLATELET COUNT 144 K/uL (156-360); RBC DIS.WIDTH-CV 14.9 % (11.8-14.6); RBC DIS.WIDTH-SD 48.5 % (39-53); WHITE BLOOD COUNT 5.8 K/uL (4.1-10.2)
[2018-03-11 06:16] LABS: CHLORIDE 92 MEQ/L (99-109); SODIUM 132 MEQ/L (136-147); UREA NITROGEN (BUN) 20 mg/dL (9-23)
[2018-03-11 06:20] LABS: CREATININE 3.5 MG/DL (0.6-1.3); GFR ESTIMATE (CALCULATED) 15 mL/min/; GLUCOSE 177 mg/dL (70-99); POTASSIUM 4.2 MEQ/L (3.7-5.4)
[2018-03-11] MEDS ORDERED: CEFTIN250 MG PO (09:28)
[2018-03-12 00:27] VITALS: BP 155/21
[2018-03-12 05:43] VITALS: BP 182/92
[2018-03-12 08:01] VITALS: BP 193/86
[2018-03-12 10:02] VITALS: BP 139/64
[2018-03-12 11:05] VITALS: BP 156/72
[2018-03-12] MEDS ORDERED: OXYCODONE HCL5 MG PO (13:12)
[2018-03-12] MEDS ORDERED: LYRICA100 MG PO (13:12)
== END 2018-03-12 15:33 | disposition home or self-care (01) ==
LOC: EME 23:27 → EDOF 03-09 02:37 → 4SOUTH 03-09 02:37 → ENRESERV 03-09 02:39 → 4SOUTH 03-09 03:28 → ENPENDDIS 03-11 → 4SOUTH 03-12 15:33
PROVIDERS: Emergency Medicine; Hospitalist; Internal Medicine; Internal Medicine Nephrology; Physician Assistant
PROC: 5A1D70Z Performance of Urinary Filtration, Intermittent, Less than 6 Hours Per Day (ICD-10-PCS; principal; 2018-03-10)
DX: R11.2 Nausea with vomiting, unspecified (principal); R94.31 Abnormal electrocardiogram [ECG] [EKG]; N39.0 Urinary tract infection, site not specified; R07.89 Other chest pain; E11.65 Type 2 diabetes mellitus with hyperglycemia; I25.10 Atherosclerotic heart disease of native coronary artery without angina pectoris; Z95.1 Presence of aortocoronary bypass graft; I13.2 Hypertensive heart and chronic kidney disease with heart failure and with stage 5 chronic kidney disease, or end stage renal disease; I50.9 Heart failure, unspecified; E11.22 Type 2 diabetes mellitus with diabetic chronic kidney disease; N18.6 End stage renal disease; Z99.2 Dependence on renal dialysis; G89.29 Other chronic pain; E78.5 Hyperlipidemia, unspecified; E87.6 Hypokalemia; D64.9 Anemia, unspecified; R10.84 Generalized abdominal pain; R51 Headache; R94.8 Abnormal results of function studies of other organs and systems; Z87.891 Personal history of nicotine dependence; Z82.49 Family history of ischemic heart disease and other diseases of the circulatory system; Z82.3 Family history of stroke; Z88.5 Allergy status to narcotic agent; Z88.6 Allergy status to analgesic agent; Z79.4 Long term (current) use of insulin; Z79.82 Long term (current) use of aspirin
CPT/HCPCS: 70450; 71045; 74176; 80048; 80053; 80069; 81003; 82010; 82948; 83690; 84484; 85025; 85027; 87077; 87086; 87186; 87493; 93005; 99281; 99285; G0257; G0378; J0360; J1644; J1815; J2405; J3480; J7030; J7040

== ENCOUNTER → 2018-06-01 | Outpatient (CLI) | payer OTHER ==
[~2018-06-01] VITALS: Ht 158.8 cm; Wt 67.1 kg
[~2018-06-01] MED LIST changes: +ADULT ASPIRIN81 MG PO; +AMLOD-VALSA-HC1 EAC1 PO; +CEFTIN250 MG PO; +DEPAKOTE ER500 MG PO; +DULOXETINE HCL60 MG PO; +ESOMEPRAZOLE MA40 MG PO; +LABETALOL HCL200 MG PO; +LYRICA75 MG PO; +OXYCODONE HCL5 MG PO; +OXYCONTIN15 MG PO; +ROSUVASTATIN CA10 MG PO; +SUMATRIPTAN SU100 MG PO; +TYLENOL REGULA325 MG PO
[2018-06-01 10:12] LABS: HEMATOCRIT 35.2 % (36.0-46.0); MCH 31.8 PG (29.0-34.0); MCHC 34.1 G/DL (30.0-36.0); MCV 93.4 FL (83-99); PLATELET COUNT 181 K/uL (156-360); RBC DIS.WIDTH-CV 14.7 % (11.8-14.6); RBC DIS.WIDTH-SD 49.9 % (39-53); RED BLOOD COUNT 3.77 M/uL (3.80-5.20); WHITE BLOOD COUNT 5.5 K/uL (4.1-10.2)
[2018-06-01 10:28] LABS: CHLORIDE 95 MEQ/L (99-109); POTASSIUM 4.7 MEQ/L (3.7-5.4); SODIUM 140 MEQ/L (136-147)
[2018-06-01 10:33] LABS: GFR ESTIMATE (CALCULATED) 10 mL/min/; GLUCOSE 208 mg/dL (70-99); UREA NITROGEN (BUN) 18 mg/dL (9-23)
== END | disposition home or self-care (01) ==
LOC: AMB 09:30
PROVIDERS: Internal Medicine
DX: Z12.11 Encounter for screening for malignant neoplasm of colon (principal); D12.2 Benign neoplasm of ascending colon; D12.0 Benign neoplasm of cecum; D12.3 Benign neoplasm of transverse colon; K21.9 Gastro-esophageal reflux disease without esophagitis; I12.0 Hypertensive chronic kidney disease with stage 5 chronic kidney disease or end stage renal disease; E11.22 Type 2 diabetes mellitus with diabetic chronic kidney disease; N18.6 End stage renal disease; Z99.2 Dependence on renal dialysis; Z87.891 Personal history of nicotine dependence; E78.1 Pure hyperglyceridemia; F41.9 Anxiety disorder, unspecified; Z95.1 Presence of aortocoronary bypass graft; Z95.5 Presence of coronary angioplasty implant and graft; Z79.82 Long term (current) use of aspirin
CPT/HCPCS: 80048; 85027; 88305; 93005